=== PATIENT | female | born 1980 | race African-American/Black ===

== ENCOUNTER 2018-06-17 11:14 | Emergency (ER) | payer OTHER, MEDICAID ==
[~2018-06-17] VITALS: Ht 165.1 cm; Wt 115.7 kg
[2018-06-17] MEDS ORDERED: ZYRTEC10 M2 PO (11:25)
[2018-06-17] MEDS ORDERED: NIFEDIPINE ER60 M1 PO (11:25)
[2018-06-17] MEDS ORDERED: PROZAC20 MG PO (11:25)
[2018-06-17] MEDS ORDERED: ATIVAN1 MG PO (11:26)
[2018-06-17] MEDS ORDERED: VENTOLIN HFA 1818 GM INH (11:26)
[2018-06-17 11:38] LABS: ABSOLUTE BASOPHILS 0.1 thou/uL (0.0-0.2); ABSOLUTE EOSINOPHILS 0.1 thou/uL (0.0-0.7); ABSOLUTE LYMPHOCYTES 1.2 thou/uL (0.8-5.3); ABSOLUTE MONOCYTES 0.3 thou/uL (0.0-1.2); ABSOLUTE NEUTROPHILS 4.7 thou/uL (1.6-8.1); BASOPHILS 0.9 %; HEMATOCRIT 39.3 % (37.0-47.0); LYMPHOCYTES 18.1 %; MCH 25.1 pg (26.0-34.0); MCHC 33.1 g/dL (28.0-37.0); MCV 75.9 fL (80.0-100.0); MONOCYTES 5.4 %; MPV 7.5 fl. (7.2-11.1); NUCLEATED RBCS 0 /100WBC; PLATELET COUNT* 499 thou/uL (150-400); POLYS 74.6 %; RBC 5.18 mil/uL (4.20-5.00); RDW-CV 14.7 % (10.5-14.5); WBC 6.4 thou/uL (4.0-11.0)
[2018-06-17 11:53] LABS: APTT 29.1 Seconds (25.0-31.3); PROTIME 10.7 Seconds (9.20-11.50)
[2018-06-17 11:56] LABS: ANION GAP 8 mmol/L (7-16); BUN 9 mg/dL (7-18); CALCIUM 8.7 mg/dL (8.5-10.1); CHLORIDE 102 mmol/L (98-107); CO2 28 mmol/L (21-32); CREATININE 0.9 mg/dL (0.6-1.3); GLUCOSE 119 mg/dL (70-99); POTASSIUM 3.5 mmol/L (3.5-5.1); SODIUM 138 mmol/L (136-145)
[2018-06-17 12:06] LABS: ALBUMIN 3.6 g/dL (3.4-5.0); ALKALINE PHOSPHATASE 86 U/L (46-116); CK-MB MASS < 0.5 ng/mL (<0.5-3.6); LIPASE 78 U/L (73-393); MAGNESIUM 1.9 mg/dL (1.8-2.4); NT-PRO BRAIN NAT PEPTIDE 11 pg/mL (<300); SGOT 19 U/L (15-37); SGPT 22 U/L (30-65); TOTAL BILIRUBIN 0.5 mg/dL (<0.1-1.0); TOTAL PROTEIN 8.7 g/dL (6.4-8.2); TROPONIN-I LEVEL <0.06 ng/mL (<0.06)
[2018-06-17 12:24] VITALS: BP 139/82
--- NOTE | 2018-06-18 14:56 | EKG ---
[place] [address] ELECTROCARDIOGRAM REPORT Name: KERRIJEIMY Byron Room: [facility]#: [id number] Admission: 06/17/18 Attend Phys: Discharge: 06/17/18 Date of : 84 Report #: [id number] THIS REPORT FOR: //name// [facility] ED Test Date: 2018-06-17 Test Time: 11:20:05 Pat Name: JEIMY MANNING Department: Room: Gender: F [employer] Machine Operator: Daryl MCKEON : 1980 Requested By: Bienvenido Nice Order Number: [id number] MD: Efrain Steele Measurements Intervals [place] Rate: 81 P: 54 SD: 157 QRS: 10 QRSD: 99 T: -5 QT: 397 QTc: 461 Interpretive Statements Sinus rhythm Borderline abnrm T, anterolateral leads No previous ECG available for comparison Electronically Signed On 06-18-2018 14:56:05 VIRTUAL CUSTOMER ASSISTANT by Efrain Steele [email or web address] <ELECTRONICALLY SIGNED> By: Efrain Steele MD, [facility] 06/18/18 1456 1120 1120 Efrain Steele MD, FACC /EPI
== END 2018-06-17 12:24 | disposition home or self-care (01) ==
LOC: M.ERS 11:14
PROVIDERS: Family Medicine
DX: R07.89 Other chest pain (principal); I10 Essential (primary) hypertension; G43.909 Migraine, unspecified, not intractable, without status migrainosus; F32.9 Major depressive disorder, single episode, unspecified; F41.9 Anxiety disorder, unspecified; E78.5 Hyperlipidemia, unspecified; Z88.1 Allergy status to other antibiotic agents; Z88.2 Allergy status to sulfonamides

== ENCOUNTER 2019-07-29 01:29 | Emergency (ER) | payer OTHER, MEDICAID ==
[~2019-07-29] VITALS: Ht 165.1 cm; Wt 113.4 kg
[~2019-07-29 01:29] MED LIST: ATIVAN1 MG PO; NIFEDIPINE ER60 M1 PO; PROZAC20 MG PO; VENTOLIN HFA 1818 GM INH; ZYRTEC10 M2 PO
[2019-07-29 03:23] LABS: INFLUENZA A ANTIGEN Negative (Negative); INFLUENZA B ANTIGEN Negative (Negative)
[2019-07-29] MEDS ORDERED: TYLENOL WITH CO1 TA1 PO (04:45)
[2019-07-29] MEDS ORDERED: AMOXICILLIN875 MG PO (04:45)
[2019-07-29 04:54] VITALS: BP 132/79
== END 2019-07-29 04:56 | disposition home or self-care (01) ==
LOC: M.ERS 01:29
PROVIDERS: Personal Emergency Response Attendant
DX: J02.0 Streptococcal pharyngitis (principal); I10 Essential (primary) hypertension; E78.5 Hyperlipidemia, unspecified; G43.909 Migraine, unspecified, not intractable, without status migrainosus; Z88.1 Allergy status to other antibiotic agents; Z88.2 Allergy status to sulfonamides